=== PATIENT | female | born 1960 | race Caucasian/White ===

== ENCOUNTER → 2019-05-30 | Outpatient (CLI) | payer OTHER, MEDICARE | LOC: SJCVCIMAG 09:10 | DX: I34.1 Nonrheumatic mitral (valve) prolapse (principal); I10 Essential (primary) hypertension; E78.5 Hyperlipidemia, unspecified; J42 Unspecified chronic bronchitis; M62.830 Muscle spasm of back; G89.29 Other chronic pain; Z88.5 Allergy status to narcotic agent; Z88.8 Allergy status to other drugs, medicaments and biological substances; Z79.51 Long term (current) use of inhaled steroids; Z79.899 Other long term (current) drug therapy ==

== ENCOUNTER → 2020-06-02 | Outpatient (CLI) | payer OTHER, MEDICARE ==
[~2020-06-02] MED LIST: CLONAZEPAM 0.50.5 M1 PO; DILTIAZEM ER180 M2 PO; HYDROCHLOROTHIA25 M2 PO; PERCOCET 10-321 EAC1 PO; RISPERDAL0.5 MG PO; SYMBICORT160 MCG/4. INH; ZESTRIL40 MG PO
== END ==
LOC: SJCVC 09:10
PROVIDERS: ATTEND Internal Medicine
DX: R07.9 Chest pain, unspecified (principal); R06.00 Dyspnea, unspecified; I10 Essential (primary) hypertension; E78.5 Hyperlipidemia, unspecified; G89.29 Other chronic pain; F17.210 Nicotine dependence, cigarettes, uncomplicated; Z79.899 Other long term (current) drug therapy

== ENCOUNTER → 2020-06-08 | Outpatient (CLI) | payer OTHER, MEDICARE ==
[~2020-06-08] VITALS: Ht 162.6 cm; Wt 71.7 kg
[2020-06-08 10:10] LABS: HEMATOCRIT 43.3 % (37.0-47.0); HEMOGLOBIN 14.4 gm/dL (12.0-15.0); MCH 29.9 pg (26.0-34.0); MCHC 33.3 g/dL (28.0-37.0); MCV 89.8 fL (80.0-100.0); RBC 4.82 mil/uL (4.20-5.00); RDW 13.4 % (10.5-14.5); WBC 10.7 thou/uL (4.0-11.0)
[2020-06-08 10:13] VITALS: BP 118/70
[2020-06-08 10:33] LABS: CALCIUM 9.7 mg/dL (8.5-10.1); CREATININE 1.4 mg/dL (0.6-1.0); POTASSIUM 4.2 mmol/L (3.5-5.1)
--- NOTE | 2020-06-17 09:54 | CATHLAB ---
[facility] [place] [address] INVASIVE PROCEDURE REPORT Name: AMELIADEWAYNE FOX Room #: REG JOSE Blanchard.#: [id number] Admission: 06/08/20 Attend Phys: Graham Guaman Discharge: Date of : 62 Report #: [id number] REPORT FOR: cc: [facility]ON FAMILY PHYSICIAN or PCP Graham Guaman MD ~ APPROVED REPORT Study performed: 06/08/2020 11:08:10 Patient Details Patient Status: Out-Patient Room #: The patient is a 60 year-old female Event Personnel Graham Guaman Egg And Spice Mixer, Shell Farley RN RN, Janae Mcginnis RN RN, Selwyn King RTR Scrub, Nazario Velazco RTR Monitor Procedures Performed Art Access - R femoral artery* 60600 Initial Mod Sed Same Phys/QHP Gr5y [id number] Mod Sed Same Phys/QHP Ea [id number] Hemostasis with Manual pressure Indication Chest pain, Abnormal stress test Procedure Narrative The Right Groin^ was infiltrated with 1% Lidocaine subcutaneous anesthesia. A PINNACLE 4FR Sheath #[id number] sheath was inserted into the RFA^. Coronary angiography was performed using coronary diagnostic catheters. The right coronary system was accessed and visualized with a JR4 catheter. The left coronary system was accessed and visualized with a JL4 catheter. The left ventricle was accessed and visualized with a PIGTAIL catheter. Left ventricular/Aortic Valve gradient assessed via catheter pullback. Hemostasis was obtained with manual pressure following sheath removal without any complications. The patient tolerated the procedure well and there were no complications associated with the procedure. There was no hematoma. Intraoperative Conscious Sedation Sedation start time: 1138 Case end Time: 1206 [facility] [address] [place] [address] INVASIVE PROCEDURE REPORT Name: DEWAYNE TOWNSEND Room #: REG CL [facility]#: [id number] Admission: 06/08/20 Attend Phys: Graham Bragg Discharge: Date of : 62 Report #: [id number] Versed 2 mg Fluoro Time: 2.80 minutes Dose: DAP 2952.30 cGycm2 468 mGy Contrast Type and Amount: Visipaque 55 ml Coronary Angiography The patient's coronary anatomy is right dominant. Diagnostic Cath Left Main Left main is large in caliber normal origin short in length bifurcates left anterior descending left circumflex no significant lesions noted LAD Moderate caliber type III vessel which courses in the anterior interventricular sulcus giving rise to several diagonal branches. There is mild irregularities noted but no significant plaquing is present. Diagonal 1 Small to moderate caliber vessel with an eccentric 40% lesion at its origin otherwise free of high-grade disease it courses on the anterolateral wall Diagonal 2 Small to moderate caliber vessel without significant high-grade lesions noted as it courses on the mid anterolateral wall Circumflex Moderate caliber dominant vessel gives rise to an early marginal branch and a early marginal branch has some mild plaquing proximal portion. The circumflex and continues in the AV groove posteriorly giving rise to small branches and a small to moderate caliber posterior wall branch. Then terminates as a small insignificant caliber posterior wall marginal branch OM1 Small to moderate caliber vessel with proximal plaquing of less than 30% otherwise no significant high-grade lesion OM2 Small insignificant caliber vessel OM3 Small to moderate caliber vessel coursing along the posterior aspect of the left ventricle free of high-grade disease L PDA Small caliber vessel without significant high-grade lesion Right Coronary Moderate caliber vessel normal origin. Has several regions of irregularity in his proximal course prior to reaching the acute margin. There is irregularities of 30 to 50% noted but no flow-limiting lesions. Left Ventriculography Left Ventriculography was not performed. Hemodynamics The aortic pressure is 138/73 mmHg with a mean of 32 mmHg. The left [facility] [address] [place] [address] INVASIVE PROCEDURE REPORT Name: DEWAYNE TOWNSEND Room #: REG [facility]#: [id number] Admission: 06/08/20 Attend Phys: Graham Bragg Discharge: Date of : 62 Report #: [id number] ventricular pressure is 117/13 mmHg with a mean of mmHg. The left ventricular end diastolic pressure is 27 mmHg. Conclusion 1. Coronary artery disease mild nonobstructive 2. Normal hemodynamic Recommendations Cardiac Risk Reduction Program Medical Therapy <ELECTRONICALLY SIGNED> By: Graham Guaman MD 06/17/2054 3 3 Graham Guaman MD /INF
== END | disposition home or self-care (01) ==
LOC: CATH 09:00
PROVIDERS: ATTEND Internal Medicine
DX: R07.9 Chest pain, unspecified (principal); I25.10 Atherosclerotic heart disease of native coronary artery without angina pectoris; R94.39 Abnormal result of other cardiovascular function study; I10 Essential (primary) hypertension; E78.5 Hyperlipidemia, unspecified; I48.91 Unspecified atrial fibrillation; K21.9 Gastro-esophageal reflux disease without esophagitis; F17.210 Nicotine dependence, cigarettes, uncomplicated; Z98.890 Other specified postprocedural states; Z79.899 Other long term (current) drug therapy; Z79.01 Long term (current) use of anticoagulants; Z88.8 Allergy status to other drugs, medicaments and biological substances

== ENCOUNTER → 2020-07-22 | Outpatient (CLI) | payer OTHER, MEDICARE | LOC: SJCVC 10:30 | PROVIDERS: ATTEND Internal Medicine | DX: R00.2 Palpitations (principal); E78.5 Hyperlipidemia, unspecified; I10 Essential (primary) hypertension; Z79.899 Other long term (current) drug therapy; Z88.5 Allergy status to narcotic agent; Z88.8 Allergy status to other drugs, medicaments and biological substances ==

== ENCOUNTER → 2021-02-08 | Outpatient (CLI) | payer OTHER, MEDICARE | LOC: SJCVCIMAG 08:43 | PROVIDERS: ATTEND Internal Medicine | DX: I10 Essential (primary) hypertension (principal) ==